=== PATIENT | female | born 1975 | race Hispanic/Latino ===

== ENCOUNTER 2023-10-11 11:29 | Emergency (ER) | payer BC, SELFPAY ==
[~2023-10-11] VITALS: Ht 157.5 cm; Wt 70.3 kg
[~2023-10-11 11:29] MED LIST: COLD PO; FLU PO; GABA-531 PO; LEVO25TA54 PO; [UNRECOGNIZED DRUG - OTHER] PO; [UNRECOGNIZED DRUG - OTHER] PO
[2023-10-11] MEDS: DEXAMETHASONE SOD PHOSPHATE 4 MG/ML 1ML VIAL IM ONE (12:34)
[2023-10-11] MEDS: KETOROLAC 60 MG VIAL (30MG/ML) IM ONE (12:35)
[2023-10-11 13:54] VITALS: BP 122/72; PULSE 76; RESP 20; O2SAT 98
== END 2023-10-11 13:55 | disposition home or self-care (01) ==
LOC: EDH 11:29
DX: M54.32 Sciatica, left side (principal); E03.9 Hypothyroidism, unspecified; E78.00 Pure hypercholesterolemia, unspecified; M79.7 Fibromyalgia; Z79.890 Hormone replacement therapy; Z79.899 Other long term (current) drug therapy; Z90.49 Acquired absence of other specified parts of digestive tract
CPT/HCPCS: 99284; 96372 ×2; J1100; J1885

== ENCOUNTER 2024-10-09 20:16 | Emergency (ER) | payer BC ==
[~2024-10-09] VITALS: Ht 160 cm; Wt 73.0 kg
--- NOTE | 2024-10-09 20:22 | ERN ---
General Chief Complaint: Toe Pain/Injury Stated Complaint: C/O PAIN TO 4TH AND 5TH TOE Time Seen by MD: 20:21 Source: patient, family History of Present Illness Initial Comments Patient has stopped her left 4th and 5th toes resulting in what sounds like a dislocation of her left 5th toe. Patient noticed that the toe was angled out laterally and she popped it back into place. Right now it is painful for her to walk painful her to flex or extend her toes. Distal circulation appears intact. Allergies: Coded Allergies: No Known Drug Allergies (Unverified Allergy, Unknown, 01/14/16) Home Meds Reported Medications [Cold, Flu, Sore ] No Conflict Check, 1 TSP PO Q6H 01/17/16 [Thyro Mend] No Conflict Check, 1 CAP PO AM 01/17/16 Levothyroxine Sodium (Levothyroxine Sodium) 25 Mcg Tablet, 25 MCG PO DAILY, TAB 01/14/16 Gabapentin (Gabapentin) 300 Mg Capsule, 300 MG PO TID, CAP 01/14/16 Past Medical History Past Medical History: Fibromyalgia, High Cholesterol, Hypothyroid Past Surgical History: Cholecystectomy ROS Dictation Review of systems is negative aside from what is in the HPI and chief complaint. Physical Exam Extremities Comment Left 4th and 5th toes are in normal anatomic alignment. The 5th toe does appear slightly bruised but it is not swollen. The toe is very tender to both active and passive flexion and extension. MDM I have ordered plain films of the patient's left toes. Plain films show a left 4th toe those diagonal fracture slightly comminuted fracture of the proximal phalanx. We will balta-tape the toe to his neighbor place the patient in a walking boot and have him follow-up with the Podiatry. Talked to Dr. Giron and he will be glad to see the patient in his clinic. ED Course Orders Procedure Category Date Status Time Toe(S) 2+Vws Lt RAD 10/09/24 Resulted 20:26 Ibuprofen 600 Mg PHA 10/09/24 Verified Tablet (Motrin) 21:30 Vital Signs Date Time Temp Pulse Resp B/P (MAP) Pulse Ox O2 Delivery O2 Flow Rate FiO2 10/09/24 20:32 98.8 63 18 113/80 100 Room Air* 0 21 10/09/24 20:19 97.9 61 20 109/79 97 Room Air DX & DISP Disposition: Discharge Departure Impression: Primary Impression: Fracture of fourth toe, left, closed Condition: Stable Additional Instructions: Please follow-up with dark to her [facility] ophthalmic tech who will examine your toe and decide how best to take care of it. For pain Motrin would work best. You can elevate the foot and treat it with ice to decrease the swelling and pain as well. Referrals: BENITA DYER (PCP) ANAMIKA GIRON DPM, GORDON K MD Oct 09, 2024 20:22
--- NOTE | 2024-10-09 20:34 | NUR ---
PT WAS GIVEN COLD PACK TO APPLY TO LEFT FOOT
--- NOTE | 2024-10-09 21:00 | HMCIMG ---
Exam Type: TOE(S) 2+VWS LT Clinical Information: trauma left 4th, 5th toes Comparison: None Findings and impression: Oblique fracture of the mid aspect of the proximal phalanx of the fourth toe. No other fractures. No other abnormalities.
[2024-10-09] MEDS: ibuPROFEN 600 MG TABLET PO ONE (21:29)
[2024-10-09 21:32] VITALS: BP 107/72; PULSE 63; RESP 18; TEMP 98.5; O2SAT 97
--- NOTE | 2024-10-09 21:58 | NUR ---
CARMENOT APPLIED TO LEFT FOOT, CRUTCHES GIVEN TO PT. PT STATES SHE UNDERSTANDS USE OF CRUTCHES SHE HAS HAD PRIOR EXPOSURE WITH THEM THROUGH HER FAMILY.
== END 2024-10-09 21:59 | disposition home or self-care (01) ==
LOC: EDH 20:16
DX: S92.512A Displaced fracture of proximal phalanx of left lesser toe(s), initial encounter for closed fracture (principal); E03.9 Hypothyroidism, unspecified; E78.00 Pure hypercholesterolemia, unspecified; M79.7 Fibromyalgia; Z79.890 Hormone replacement therapy; Z79.899 Other long term (current) drug therapy; Z90.49 Acquired absence of other specified parts of digestive tract; X58.XXXA Exposure to other specified factors, initial encounter; Y93.89 Activity, other specified; Y92.89 Other specified places as the place of occurrence of the external cause; Y99.8 Other external cause status
CPT/HCPCS: 73660; 99283